=== PATIENT | female | born 1930 | race Caucasian/White ===

== ENCOUNTER 2017-05-01 11:54 | Emergency (ER) | payer MEDICARE ==
[~2017-05-01] VITALS: Ht 160 cm; Wt 59.0 kg
--- NOTE | 2017-05-01 11:54 | NUR ---
Arrived via ALS ambulance from [facility] compliant of chest pressure since last night. Patient states that pain was moderately improved after receiving ASA 162mg and NTG 0.4g SL enroute to ER. Placed in room 3 . Placed on ekg monitor tech, blood pressure machine and pulse oximeter. To gown for exam. Side rails up. Report given to Evita FUNEZ.
[2017-05-01 11:55] VITALS: BP_SYST 108
--- NOTE | 2017-05-01 11:57 | NUR ---
ER Dr. Hoang at bedside examining patient.
--- NOTE | 2017-05-01 12:00 | NUR ---
Pt brought BLS, A&Ox4, pt c/o mild pressure in the chest 11/14, since last night, pt states pain was relieved with nitro last night but returned this am,VS WNL, denies SOB, skin pink and warm, cap refill <3.
[2017-05-01] MEDS ORDERED: LOSA25TA3 PO (12:27)
[2017-05-01] MEDS ORDERED: ROPI0.252 PO (12:27)
[2017-05-01] MEDS ORDERED: OXYC-130 PO (12:27)
[2017-05-01] MEDS ORDERED: ASPI-1063 PO (12:27)
[2017-05-01] MEDS ORDERED: PRO2.5 PO (12:27)
[2017-05-01] MEDS ORDERED: DORZ10DR8 OP (12:27)
[2017-05-01] MEDS ORDERED: FLUT16SP16 NS (12:27)
[2017-05-01] MEDS ORDERED: ACET-1172 PO (12:27)
[2017-05-01] MEDS ORDERED: LIP20 PO (12:27)
[2017-05-01] MEDS ORDERED: ALBMDI INH (12:27)
[2017-05-01] MEDS ORDERED: METO-290 PO (12:27)
[2017-05-01] MEDS ORDERED: melatonin SL (12:27)
[2017-05-01] MEDS ORDERED: HYDR25TA4 PO (12:27)
[2017-05-01] MEDS ORDERED: ONDA4TAB22 PO (12:27)
[2017-05-01] MEDS ORDERED: LATA2.5D6 OP (12:27)
[2017-05-01] MEDS ORDERED: LACT10SO66 PO (12:27)
[2017-05-01 12:39] LABS: BASOPHILS % (AUTO) 0.3 % (0.0-2.0); EOSINOPHILS # (AUTO) 0.1 K/uL (0.0-0.4); EOSINOPHILS % (AUTO) 0.8 % (0.0-4.0); HEMATOCRIT 26.7 % (36-48); HEMOGLOBIN 8.9 g/dL (12.0-16.0); LYMPHOCYTES # (AUTO) 1.5 K/uL (1.0-5.5); LYMPHOCYTES % (AUTO) 14.3 % (20.5-51.5); MEAN CORPUSCULAR HEMOGLOBIN 30 pg (27-31); MEAN CORPUSCULAR HGB CONC 33 % (32-36); MEAN CORPUSCULAR VOLUME 89 fL (79.0-98.0); MONOCYTES # (AUTO) 0.7 K/uL (0.0-1.0); MONOCYTES % (AUTO) 6.9 % (1.7-9.3); NEUTROPHILS # (AUTO) 8.4 K/uL (1.8-7.7); NEUTROPHILS % (AUTO) 77.7 % (40.0-70.0); PLATELET COUNT (AUTO) 297 K/uL (130-430); RED CELL DISTRIBUTION WIDTH 14.3 % (9.0-15.0); WHITE BLOOD COUNT (AUTO) 10.8 K/uL (4.8-10.8)
[2017-05-01 12:44] LABS: ANION GAP 6 (5-15); CHLORIDE 104 mmol/L (98-107); CREATININE 1.74 mg/dL (0.55-1.30); GLUCOSE 132 mg/dL (70-99); POTASSIUM 4.3 mmol/L (3.5-5.1); SODIUM SERUM 135 mmol/L (136-145); UREA NITROGEN, BLOOD 34 mg/dL (8-21)
--- NOTE | 2017-05-01 12:46 | NUR ---
Medication reconciliation completed with information provided by patient. Any prior medication reconciliation on file was reviewed and corrected.
[2017-05-01 12:49] LABS: ALANINE AMINOTRANSFERASE 15 U/L (12-78); ALBUMIN 2.4 g/dL (3.4-4.8); ASPARTATE AMINOTRANSFERASE 16 U/L (10-37); TOTAL BILIRUBIN 0.4 mg/dL (0.0-1.0)
[2017-05-01 13:03] LABS: INR 1.1 (0.8-1.2); PROTHROMBIN TIME 11.6 SECS (9.5-12.5)
--- NOTE | 2017-05-01 13:03 | NUR ---
Pt on stable condition, denies pain at this time, VS WNL.
--- NOTE | 2017-05-01 13:25 | NUR ---
Notified Dr. Hoang regarding pt's creatinine level 1.74, CTA held at this time.
--- NOTE | 2017-05-01 13:29 | NUR ---
Pt states no pain or discomfort at this time. Updated pt and family member with plan of care, pt and family states understanding.
--- NOTE | 2017-05-01 14:34 | NUR ---
Spoke with Gamal with [facility] who gave transfer information: [facility] with Dr. Brooke as receiving physcian, phone number for report is , ALS transport is enroute with ETA [id number].
--- NOTE | 2017-05-01 15:04 | NUR ---
Vitor to in ED - 05/01/17 at 1505 by [email or web address] Pt family at bedside, VS WNL, pt A&Ox4.
[2017-05-01 16:03] VITALS: BP_SYST 126
--- NOTE | 2017-05-01 16:05 | NUR ---
Patient to be transferred to [place]. Is being transferred due to higher level of care. Receiving facility has accepting physician and available space. ER physician has signed transfer form. Patient or responsible libertarian has agreed to transfer and signed form. Patient belongings inventoried and will be sent with patient. Copy of nursing notes, lab reports, EKG, Physicians Orders and X-rays to be sent with patient. Report called to [place] [facility] at receiving facility. Receiving physician is . ambulance service has been called for transfer.
== END 2017-05-01 16:03 | disposition short-term general hospital (02) ==
LOC: SED 11:54
DX: R07.89 Other chest pain (principal); N28.9 Disorder of kidney and ureter, unspecified; R79.1 Abnormal coagulation profile; I10 Essential (primary) hypertension; E78.5 Hyperlipidemia, unspecified; H40.9 Unspecified glaucoma; Z88.6 Allergy status to analgesic agent; Z79.899 Other long term (current) drug therapy
CPT/HCPCS: 36415; 71010; 80053; 83880; 84484; 85025; 85379; 85610-TC; 85730-TC; 99285